=== PATIENT | male | born 1975 | race Caucasian/White ===

== ENCOUNTER 2024-02-12 00:59 | Emergency (ER) | payer MEDICAID ==
[~2024-02-12] VITALS: Ht 167.6 cm; Wt 63.0 kg
[2024-02-12 01:09] VITALS: O2SAT 99
[2024-02-12 01:29] VITALS: BP 110/78; PULSE 104; RESP 18; TEMP 98.2; O2SAT 98
[2024-02-12] MEDS ORDERED: BENZ200C52 MT (03:09)
[2024-02-12] MEDS ORDERED: TOPUD MT (03:09)
[2024-02-12] MEDS ORDERED: TUSSL MT (03:09)
== END 2024-02-12 03:32 | disposition home or self-care (01) ==
LOC: ER 00:59
DX: B34.9 Viral infection, unspecified (principal)
CPT/HCPCS: 71045; 99283